=== PATIENT | male | born 1995 | race Caucasian/White ===

== ENCOUNTER 2017-07-04 07:52 | Emergency (ER) | payer OTHER ==
[2017-07-04 07:58] VITALS: BP 129/85
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
[2017-07-04] MEDS ORDERED: HUMALOG KW100 UNIT/1 (08:11)
[2017-07-04] MEDS ORDERED: TRESIBA FL100 UNIT/1 (08:12)
[2017-07-04] MEDS ORDERED: IBUPROFEN600 M1 PO (08:14)
== END 2017-07-04 08:24 ==
LOC: ERH 07:52
DX: S16.1XXA Strain of muscle, fascia and tendon at neck level, initial encounter (principal); V89.2XXA Person injured in unspecified motor-vehicle accident, traffic, initial encounter; Y92.410 Unspecified street and highway as the place of occurrence of the external cause